=== PATIENT | female | born 1995 | race Two or more races ===

== ENCOUNTER 2018-08-01 01:59 | Emergency (ER) | payer MEDICAID ==
[~2018-08-01] VITALS: Ht 167.6 cm; Wt 64.0 kg
[2018-08-01 02:02] VITALS: BP 128/88
[2018-08-01] MEDS ORDERED: ALBUTEROL/IPRATROPIUM 2.5MG/0.5MG, 3 ML ONE (02:17)
[2018-08-01] MEDS ORDERED: IBUPROFEN 600 MG TABLET ONE (02:18)
[2018-08-01] MEDS ORDERED: IBUPROFEN 600 MG TABLET PO ONE (02:30)
== END 2018-08-01 02:24 | disposition home or self-care (01) ==
LOC: ED 02:17
DX: S00.83XA Contusion of other part of head, initial encounter (principal); V49.49XA Driver injured in collision with other motor vehicles in traffic accident, initial encounter; Y93.89 Activity, other specified; Y92.89 Other specified places as the place of occurrence of the external cause; Y99.8 Other external cause status
CPT/HCPCS: 99283